=== PATIENT | female | born 1975 | race Caucasian/White ===

== ENCOUNTER 2017-05-20 10:31 | Day surgery (SDC) | payer OTHER ==
[~2017-05-20] VITALS: Ht 160 cm; Wt 108.9 kg
[~2017-05-20 10:31] MED LIST: ACETAMINOPHEN500 M1 PO; BUPROPION XL300 MG PO; EFFEXOR100 MG PO; FERROUS SULFAT325 MG PO; LAMICTAL100 MG PO; METOPROLOL TART50 MG PO; MULTIPLE VITAMI1 TA1 PO; PEPCID20 MG PO
[2017-05-20 12:10] LABS: HEMATOCRIT 44.7 % (36.0-48.0); HEMOGLOBIN 14.4 g/dL (12-16); MCH 33.8 pg (26.0-34.0); MCHC 32.2 g/dL (31.0-37.0); MCV 104.9 fL (80.0-100.0); MEAN PLATELET VOLUME 8.7 fL (7.4-10.4); RBC 4.26 10x6/uL (4.00-5.40); RDW 13.1 % (11.5-14.5); WBC 12.1 10x3/uL (4.8-10.8)
[2017-05-20 12:16] LABS: HCG URINE NEGATIVE (NEGATIVE)
[2017-05-20 12:17] VITALS: BP 110/75; Ht 160 cm; Wt 108.9 kg
[2017-05-20] MEDS ORDERED: HYDROCODONE-APA1 TAB PO (14:40)
--- NOTE | 2017-05-20 18:01 | NUR ---
1530--IV DC'D, PT UP TO DRESS. JAMI TOMLIN [id number]--DISCHARGE INSTRUCTIONS GIVEN, PT VERBALIZES UNDERSTANDING. PT OFF UNIT VIA WC. JAMI TOMLIN
--- NOTE | 2017-05-21 09:25 | OP ---
PATIENT NAME: VASU CERDA MEDICAL RECORD: [id number] :71 LOCATION:D.OPS ADMISSION DATE: SURGEON: THO FERGUSON MD DATE OF OPERATION: 05/20/2017 PREOPERATIVE DIAGNOSES: 1. Left hip pain. 2. Pubic symphysitis. POSTOPERATIVE DIAGNOSES: 1. Left hip pain. 2. Pubic symphysitis. PROCEDURE: 1. Injection of the left hip under fluoroscopy. 2. Injected into the symphysis pubis under fluoroscopy. SURGEON: Tho Ferguson MD. ANESTHESIA: General. INTRAOPERATIVE COMPLICATIONS: None. SUMMARY OF PATHOLOGIC FINDINGS: Essentially none, consistent with preoperative diagnosis. In the radiographs, the patient has had a previous pelvic fracture that resulted in an arthritic and inflamed anterior symphysis, as well as hip pain as noted at the time of clinical examination. OPERATIVE SUMMARY IN DETAIL: After obtaining the appropriate preoperative orthopedic surgery consent, as well as anesthetic consultation, evaluation and clearance, the patient was brought to the operating room and placed on the operating table in supine position. After adequate TIVA anesthesia was administered, the patient's anterior symphysis pubis area was prepped and draped along with the left hip. Left hip was approached first. Under fluoroscopy, an 18-gauge spinal needle was placed into the capsule under fluoroscopic guidance. A small amount of Isovue was placed to be sure that the needle was in the appropriate position. This was followed with 40 mg of Depo-Medrol and 7 cc of 0.25% Marcaine with epinephrine. Having completed this, the needles withdrawn, bandage was applied. Then, under fluoroscopy directly to the mons, the 18-gauge needle was placed into the symphysis pubis and likewise 40 mg of Depo-Medrol and 7 cc of 0.25% Marcaine plain were injected along the symphysis pubis. Having completed this, the needles withdrawn. The patient was awakened and taken back to outpatient in stable condition. TRANSINT:[id number] Voice Confirmation ID: [id number] DOCUMENT ID: [id number] THO FERGUSON MD at 0925 CC: [id number] DICTATION DATE: 05/20/172037 PROJECT MANAGEMENT CONSULTANT: 05/21/17 0110 [facility] 05/20/17 [facility] [address] [place] [address]
== END 2017-05-20 15:45 | disposition home or self-care (01) ==
LOC: D.OPS 10:31 → D.PAN 16:45 → D.OPS 16:45
PROVIDERS: Anesthesiology; Orthopaedic Surgery
DX: M25.552 Pain in left hip (principal); R10.2 Pelvic and perineal pain; Z01.812 Encounter for preprocedural laboratory examination

== ENCOUNTER → 2018-05-27 09:04 | Outpatient (CLI) | payer MEDICAID ==
[2017-05-20 12:17] VITALS: BMI 42.6
[~2018-05-27 09:04] MED LIST changes: +HYDROCODONE-APA1 TAB PO
== END | disposition home or self-care (01) ==
LOC: D.NM 09:04
DX: Z96.649 Presence of unspecified artificial hip joint (principal)

== ENCOUNTER 2019-05-17 14:24 | Emergency (ER) | payer MEDICAID ==
[~2019-05-17] VITALS: Ht 160 cm; Wt 104.5 kg
[2019-05-17 14:31] VITALS: Ht 160 cm; Wt 104.5 kg
[2019-05-17 16:04] LABS: BASOPHILS 0.2 % (0-2); EOSINOPHILS 1.1 % (0-7); HEMATOCRIT 40.4 % (36.0-48.0); IMMATURE GRANULOCYTES 0.5 % (0-5); LYMPHOCYTES 21.6 % (15-50); MCH 34.5 pg (26.0-34.0); MCHC 34.7 g/dL (31.0-37.0); MCV 99.5 fL (80.0-100.0); MEAN PLATELET VOLUME 8.3 fL (7.4-10.4); NEUTROPHILS 69.6 % (40-80); PLATELET COUNT 442 10x3/uL (130-400); RBC 4.06 10x6/uL (4.00-5.40); RDW 13.1 % (11.5-14.5); WBC 11.8 10x3/uL (4.8-10.8)
[2019-05-17 16:20] LABS: ALBUMIN 3.8 g/dL (3.4-5.0); ANION GAP 16.5 mmol/L (8-16); BILIRUBIN - TOTAL 0.96 mg/dL (0.2-1.3); CALCIUM 9.4 mg/dL (8.5-10.1); CARBON DIOXIDE 27.4 mmol/L (21.0-32.0); CREATININE - SERUM 0.9 mg/dL (0.6-1.3); PROTEIN - SERUM 7.9 g/dL (6.4-8.2)
[2019-05-17 16:29] LABS: POTASSIUM - SERUM 2.9 mmol/L (3.5-5.1)
[2019-05-17 16:38] LABS: APPEARANCE CLEAR (CLEAR); BILIRUBIN NEGATIVE (NEGATIVE); COLOR YELLOW (YELLOW); GLUCOSE NEGATIVE (NEGATIVE); KETONE NEGATIVE (NEGATIVE); NITRITE NEGATIVE (NEGATIVE); PROTEIN TRACE mg/dL (NEGATIVE); SPECIFIC GRAVITY 1.025 (1.005-1.020); UROBILINOGEN NORMAL (NORMAL)
[2019-05-17] MEDS ORDERED: ASPIRIN81 MG PO (16:55)
[2019-05-17] MEDS ORDERED: OMEPRAZOLE40 MG PO (16:56)
[2019-05-17] MEDS ORDERED: FEXOFENADINE H180 MG PO (16:57)
[2019-05-17 20:14] VITALS: BP 126/75
== END 2019-05-17 20:04 | disposition home or self-care (01) ==
LOC: D.ER 14:24
PROVIDERS: Family Medicine
DX: E87.6 Hypokalemia (principal); F41.9 Anxiety disorder, unspecified